=== PATIENT | female | born 1980 | race Caucasian/White ===

== ENCOUNTER 2019-09-20 08:26 | Emergency (ER) | payer BC ==
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
--- NOTE | 2019-09-20 09:36 | CR ---
INDICATION: Pain left foot. COMPARISON: Two-view study left foot. FINDINGS: No evidence of fracture or dislocation. No bone or soft tissue abnormalities. IMPRESSION: Negative radiographic examination of the left foot. Dictated by Austin Fritz MD @ Sep 20 2019 9:34AM Signed by Dr. Austin Fritz @ Sep 20 2019 9:35AM
== END 2019-09-20 10:04 | disposition home or self-care (01) ==
LOC: MW.ED 08:26
DX: S99.912A Unspecified injury of left ankle, initial encounter (principal); F17.210 Nicotine dependence, cigarettes, uncomplicated; E66.9 Obesity, unspecified; Z68.30 Body mass index [BMI] 30.0-30.9, adult; Y04.2XXA Assault by strike against or bumped into by another person, initial encounter
CPT/HCPCS: 73620-26-LT; 73620-LT; 99283; 99283-25

== ENCOUNTER 2019-10-07 07:58 | Day surgery (SDC) | payer BC ==
[~2019-10-07 07:58] MED LIST: 50% Dextrose in Water 50 ML Syringe IVPUSH PRN; Albuterol 0.083% 2.5 MG/3 ML Neb Soln NEB PRN; Atropine 0.1 MG/ML 10 ML Syringe IVPUSH PRN; EPINEPHrine 1:10,000 1 MG/10 ML Syringe IVPUSH PRN; Naloxone 0.4 MG/ML Syringe IVPUSH PRN; fentaNYL 100 MCG/2 ML SDV IVPUSH PRN
[2019-10-07] MEDS ORDERED: Triamcinolone Acetonide 40 MG/ML 10 ML MDV ONE (07:59)
[2019-10-07] MEDS: Lactated Ringers 1,000 ML IV SCH (08:40)
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
[2019-10-07] MEDS ORDERED: Midazolam 1 MG/ML 2 ML SDV ONE ×2 (09:18→10:22)
[2019-10-07] MEDS ORDERED: Propofol 200 MG/20 ML SDV ONE ×2 (09:18→10:48)
[2019-10-07] MEDS ORDERED: fentaNYL 100 MCG/2 ML SDV ONE ×2 (09:18→10:23)
[2019-10-07] MEDS ORDERED: ceFAZolin/Dextrose,Iso-Osmotic 2 GM/50 ML Duplex Bag IV ONE (09:57)
[2019-10-07] MEDS ORDERED: ePHEDrine 50 MG/ML SDV ONE (09:58)
[2019-10-07] MEDS ORDERED: Phenylephrine/Normal Saline 100 MCG/ML 10 ML Syringe ONE (09:58)
[2019-10-07] MEDS ORDERED: Lidocaine 1% 50 ML MDV ONE (10:00)
[2019-10-07] MEDS ORDERED: Bupivacaine 0.5% 30 ML SDV ONE (10:00)
[2019-10-07] MEDS ORDERED: Dexamethasone 4 MG/ML 5 ML MDV ONE (10:01)
[2019-10-07] MEDS ORDERED: Lidocaine 1% 20 ML MDV ONE (10:03)
--- NOTE | 2019-10-07 11:06 | PCM.OPNOTE ---
- General Post-Op/Procedure Note Date of Surgery/Procedure: 10/07/19 Operative Procedure(s): bilateral carpal tunnel release. bilateral lateral epicondyle injections Pre Op Diagnosis: bilateral lateral epicondylitis. bilateral carpal tunnel syndrome Post-Op Diagnosis: Same Anesthesia Technique: Local, MAC Primary Surgeon: Jose Richardson Bulb Tester: Viv Nieves EBL in mLs: 10 Complications: None Condition: Good
--- NOTE | 2019-10-07 11:56 | PCM.POSTAN ---
POST ANESTHESIA ASSESSMENT - MENTAL STATUS Mental Status: Alert, Oriented - VITAL SIGNS Vital Signs: Last Vital Signs Temp 37.0 C 10/07/19 11:38 Pulse 88 10/07/19 11:38 Resp 16 10/07/19 11:38 BP 111/70 10/07/19 11:38 Pulse Ox 94 L 10/07/19 11:38 - RESPIRATORY Respiratory Status: Respiratory Rate WNL, Airway Patent, O2 Saturation Stable - CARDIOVASCULAR CV Status: Pulse Rate WNL, Blood Pressure Stable - GASTROINTESTINAL GI Status: No Symptoms - PAIN Pain Score: 0 - POST OP HYDRATION Hydration Status: Adequate & Stable - OBSERVATIONS Free Text/Narrative:: No anesthesia problems
--- NOTE | 2019-10-07 11:56 | PCM48HPAN ---
Post Anesthesia Note - EVALUATION WITHIN 48HRS OF ANESTHETIC Vital Signs in Normal Range: Yes Patient Participated in Evaluation: Yes Respiratory Function Stable: Yes Airway Patent: Yes Cardiovascular Function Stable: Yes Hydration Status Stable: Yes Pain Control Satisfactory: Yes Nausea and Vomiting Control Satisfactory: Yes Mental Status Recovered: Yes Vital Signs: Last Vital Signs Temp 37.0 C 10/07/19 11:38 Pulse 88 10/07/19 11:38 Resp 16 10/07/19 11:38 BP 111/70 10/07/19 11:38 Pulse Ox 94 L 10/07/19 11:38 - COMMENTS/OBSERVATIONS Free Text/Narrative:: No anesthesia problems
--- NOTE | 2019-10-07 12:15 | OR ---
SURGEON: Jose Richardson DATE OF PROCEDURE: 10/07/2019 PREOPERATIVE DIAGNOSES: Bilateral carpal tunnel syndrome and bilateral tennis elbow. POSTOPERATIVE DIAGNOSES: Bilateral carpal tunnel syndrome and bilateral tennis elbow. PROCEDURES: Bilateral carpal tunnel release and bilateral lateral epicondyle injection. PRIMARY SURGEON: Jose Richardson DO. TOWEL WEAVER: ROSIE Esparza. ROLE OF TOWEL WEAVER: Nurse practitioner, ROSIE Esparza, played an essential role in assisting in this case, helping to position the patient, retract structures as needed, as well as suturing and cutting sutures as indicated. Her presence improved patient's safety and decreased operative time. ANESTHESIA: MAC plus local. FLUID: Lactated Ringer's solution. ESTIMATED BLOOD LOSS: 10 mL. COMPLICATIONS: None. SPECIMEN: None. DISCHARGE DISPOSITION: Stable to PACU. TOURNIQUET TIME RIGHT: 7 minutes. TOURNIQUET TIME LEFT: 4 minutes. HISTORY AND INDICATIONS FOR THE PROCEDURE: The patient was seen preoperatively in the clinic. She failed nonoperative treatment. Preoperative testing confirmed bilateral carpal tunnel syndrome. Risks and goals of the procedure explained to the patient. Informed consent was obtained. DETAILS OF PROCEDURE: The patient was seen preoperatively by myself and the Anesthesia staff in the preoperative holding area where the operative site was marked. She was brought to the operative suite by Anesthesia staff where local sedation was administered. Tourniquets were placed bilaterally on the forearms. The bilateral hands and distal forearms were prepped and draped in a sterile manner. A time-out was called identifying the correct patient, the correct procedure, the correct site, and that antibiotics have been given within appropriate period of time. The right upper extremity was done first. The hand was exsanguinated, tourniquet was raised to 200 mmHg. A line was drawn in line with the first metacarpal and then proximally in line with the radial border of the 4th digit about 1.5 cm and carried down subcutaneously. A self-retaining retractor was then used. I then used a 15 blade to spread the soft tissues, identified the transverse carpal ligament which was incised with a 15 blade. I then went above and beneath the deep palmar fascia both proximally and distally and then used a Ragnell, and under direct visualization, we the deep palmar fascia proximally and distally. I then applied some dexamethasone and then let down the tourniquet and controlled some bleeders with bipolar electrocautery and then closed the incision with interrupted horizontal mattress sutures followed by application of Betadine soaked Adaptic, 4 x 4 sponges, and an Junito wrap. I did take a little bit longer on the right because the fascia was very thick distally and it took an extended period of time to go through with the Dary. I repeated the same procedure on the left wrist. I wanted to note that there was increased soft tissue reaction and it appeared brown covering the median nerve. Otherwise, it was uneventful. I again closed in the same manner. I then removed all of our drapes and then injected both lateral epicondyles and then placed Band-Aids. I applied alcohol prior and after the injection and placed Band-Aids after the injection. The patient was then allowed to awaken from conscious sedation and taken to the PACU in stable condition. Please also note that I injected both of these incisions on the carpal tunnels with both short-acting and long-acting local anesthetic including Sensorcaine. [id number] / MODL /[id number]
== END 2019-10-07 12:05 | disposition home or self-care (01) ==
LOC: MW.SDS 07:58
PROVIDERS: ATTEND Orthopaedic Surgery
DX: G56.03 Carpal tunnel syndrome, bilateral upper limbs (principal); M77.12 Lateral epicondylitis, left elbow; M77.11 Lateral epicondylitis, right elbow; F17.210 Nicotine dependence, cigarettes, uncomplicated; E66.9 Obesity, unspecified; Z68.30 Body mass index [BMI] 30.0-30.9, adult
CPT/HCPCS: 81025; J0690; J1100; J2001; J2250; J2370; J2704; J3010; J3301; J3490; J7120

== ENCOUNTER 2020-02-24 11:12 | Day surgery (SDC) | payer BC, OTHER ==
[~2020-02-24 11:12] MED LIST changes: +Bupivacaine 0.5% 30 ML SDV ONE; +Lactated Ringers 1,000 ML IV SCH; +Lidocaine 2% 5 ML SDV ONE; +Midazolam 1 MG/ML 2 ML SDV ONE; +Propofol 200 MG/20 ML SDV ONE; +Sodium Chloride 0.9% 10 ML SDV IV PRN; +Sodium Chloride 0.9% 10 ML Syringe FLUSH PRN; +Sodium Chloride 0.9% 2.5 ML Syringe FLUSH PRN; +ceFAZolin 1 GM Vial ONE; +fentaNYL 100 MCG/2 ML SDV ONE
[2020-02-24] MEDS ORDERED: Lidocaine 1% 20 ML MDV ONE (12:22)
--- NOTE | 2020-02-24 12:41 | PCM.OPNOTE ---
- General Post-Op/Procedure Note Date of Surgery/Procedure: 02/24/20 Operative Procedure(s): Incision and drainage left breast abscess Findings: 4 x 2 x 1 cm retroareolar abscess that tunneled to the 3 oclock position of the left areolar skin border. Pre Op Diagnosis: periductal mastitis, breast abscess Post-Op Diagnosis: same Anesthesia Technique: Local, MAC Primary Surgeon: Lois Dolan Fluid Replacement, Intraop: 300 EBL in mLs: 10 Condition: Good
--- NOTE | 2020-02-24 12:54 | PCM.POSTAN ---
POST ANESTHESIA ASSESSMENT - MENTAL STATUS Mental Status: Alert, Oriented - VITAL SIGNS Vital Signs: Last Vital Signs Temp 36.2 C 02/24/20 12:34 Pulse 98 02/24/20 12:44 Resp 17 02/24/20 12:44 BP 117/71 02/24/20 12:44 Pulse Ox 100 02/24/20 12:44 - RESPIRATORY Respiratory Status: Respiratory Rate WNL, Airway Patent, O2 Saturation Stable - CARDIOVASCULAR CV Status: Pulse Rate WNL, Blood Pressure Stable - GASTROINTESTINAL GI Status: No Symptoms - PAIN Pain Score: 0 - POST OP HYDRATION Hydration Status: Adequate & Stable - OBSERVATIONS Free Text/Narrative:: no anesthesia problems
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
[2020-02-24] MEDS ORDERED: HYDROmorphone 2 MG/ML Syringe ONE (13:09)
[2020-02-24] MEDS ORDERED: Glycopyrrolate 0.2 MG/ML SDV ONE (13:17)
[2020-02-24] MEDS ORDERED: Acetaminophen/oxyCODONE 325-5 MG Tab PO PRN (13:26)
--- NOTE | 2020-02-24 13:44 | PCM48HPAN ---
Post Anesthesia Note - EVALUATION WITHIN 48HRS OF ANESTHETIC Vital Signs in Normal Range: Yes Patient Participated in Evaluation: Yes Respiratory Function Stable: Yes Airway Patent: Yes Cardiovascular Function Stable: Yes Hydration Status Stable: Yes Pain Control Satisfactory: Yes Nausea and Vomiting Control Satisfactory: Yes Mental Status Recovered: Yes Vital Signs: Last Vital Signs Temp 36.2 C 02/24/20 12:34 Pulse 98 02/24/20 12:44 Resp 17 02/24/20 12:44 BP 117/71 02/24/20 12:44 Pulse Ox 100 02/24/20 12:44 - COMMENTS/OBSERVATIONS Free Text/Narrative:: No anesthesia problems
--- NOTE | 2020-02-24 18:14 | OR ---
SURGEON: LOIS DOLAN MD DATE OF PROCEDURE: 02/24/2020 PREOPERATIVE DIAGNOSIS: Periductal mastitis with breast abscess. POSTOPERATIVE DIAGNOSIS: Periductal mastitis with breast abscess. PROCEDURE PERFORMED: Incision and drainage of left breast abscess. PRIMARY SURGEON: Lois Dolan MD ANESTHESIA: Local, MAC. FLUIDS: 300 mL of crystalloid. ESTIMATED BLOOD LOSS: 10 mL. FINDINGS: A 4 x 2 x 1 cm retroareolar abscess that tunneled to the 3 o'clock position on the left areolar skin border. COMPLICATIONS: None. INDICATIONS: The patient is a 39-year-old female who presented to my clinic with complaints of a left breast abscess. She is a smoker and previously had a left nipple piercing. She has had several episodes of mastitis, but recently the inflammation became more severe. She was placed on antibiotics by her primary care provider and sent to my office with concerns of breast abscess. On inspection, she had periductal mastitis associated with cellulitis and a breast abscess. The decision was made to take her to the operating room to perform an incision and drainage of this abscess. I explained the procedure, expected perioperative course, and risks. The patient verbalized understanding and wishes to proceed. PROCEDURE IN DETAIL: The patient was brought into the OR and placed on the OR table in supine position. A time-out was completed verifying the patient's name, age, date of , allergies, and procedure to be performed. Monitored anesthesia care was induced. The left chest was prepped and draped in usual standard fashion. The patient had cellulitis in clinic. I had marked out the area of redness. Today, the redness has improved significantly. Upon inspection, the patient still had a fluctuant area at the 3 o'clock position along the left areolar skin border. I anesthetized this area with 1% lidocaine plain. An elliptical skin incision was made around the denuded purulent-appearing material using a 15 blade. Cautery was used to dissect down to the level of subcutaneous fat. I immediately encountered white purulent fluid. This was sent for anaerobic culture and Gram stain. I then used a hemostat to explore the wound. The wound tunneled medially under the nipple. The abscess cavity was broken up using a hemostat. I then copiously irrigated the area with normal saline. The abscess cavity was measured and found to be 4 x 2 x 1 cm in size. The wound was packed with quarter-inch packing strip and covered with dry 4 x 4 gauze which was secured in place with tape. The patient tolerated the procedure well and was taken to the PACU in stable condition. All counts were complete and correct at the end of the case. KARLA COLLAZO /[id number]
== END 2020-02-24 14:30 | disposition home or self-care (01) ==
LOC: MW.SDS 11:12
PROVIDERS: ATTEND Surgery
DX: N61.1 Abscess of the breast and nipple (principal); N60.42 Mammary duct ectasia of left breast; M77.12 Lateral epicondylitis, left elbow; G56.03 Carpal tunnel syndrome, bilateral upper limbs; F17.210 Nicotine dependence, cigarettes, uncomplicated; E66.9 Obesity, unspecified; Z11.59 Encounter for screening for other viral diseases; Z68.34 Body mass index [BMI] 34.0-34.9, adult
CPT/HCPCS: 19020; 81025; 87070; 87205; 87635; 88305; A9270; J1170; J2001; J2250; J2704; J3010; J3370; J7050; J7120; 00400; J0690; J3490; U0002